=== PATIENT | female | born 1965 | race Caucasian/White ===

== ENCOUNTER 2022-01-02 09:44 | Inpatient (IN) | payer BC, OTHER ==
[2022-01-02 10:14] LABS: #Monocytes 0.6 10x3/uL (0.0-1.1); #Neutrophils 9.3 10x3/uL (1.5-8.4); %Basophils 0.2 % (0.0-2.0); %Eosinophils 0.3 % (0.0-6.0); %Lymphocytes 20.6 % (18.0-47.0); %Monocytes 4.4 % (0.0-10.0); %Neutrophils 74.2 % (40.0-75.0); Hemoglobin 16.1 g/dL (12.0-15.5); Mean Corpuscular HGB CONC 34.7 g/dL (32.0-36.0); Mean Corpuscular Hemoglobin 29.1 pg (27.0-33.0); Mean Corpuscular Volume 83.8 fl (81.6-98.3); Mean Platelet Volume 9.8 fl (7.4-10.4); Platelet Count 348 10x3/uL (150-450); RBC Distribution Width 12.2 % (11.5-14.5); Red Blood Cell (RBC) Count 5.54 10x6/uL (3.90-5.03); White Blood Cell (WBC) Count 12.6 10x3/uL (3.5-10.5)
[2022-01-02 10:33] LABS: ALT (SGPT) 22 U/L (8-55); AST (SGOT) 28 U/L (5-34); Acetaminophen Less than 10.0 mcg/mL (10.0-30.0); Albumin 4.4 g/dL (3.5-5.0); Alcohol Less than 10 mg/dL (Less than 10); Alkaline Phosphatase 114 U/L (40-110); Anion Gap 23 mmol/L (10-20); BUN (Urea Nitrogen) 13 mg/dL (9.8-20.1); Calc. Creatinine Clearance 0 mL/min (70-130); Calcium 9.6 mg/dL (7.8-10.44); Carbon Dioxide 18 mmol/L (22-29); Chloride 97 mmol/L (98-107); Estimated GFR 94; Globulin 4.1 g/dL (2.4-3.5); Glucose 369 mg/dL (70-105); Potassium 3.5 mmol/L (3.5-5.1); Protein, Total 8.5 g/dL (6.0-8.3); Salicylate Less than 8.0 mg/dL (15.0-30.0); Sodium 134 mmol/L (136-145)
[2022-01-02] MEDS ORDERED: Aspirin Chewable 81 MG TAB ONE (12:21)
[2022-01-02] MEDS ORDERED: Ondansetron PF 4 MG/2 ML Vial IVP PRN (13:27)
[2022-01-02] MEDS ORDERED: Acetaminophen 325 MG TAB PO PRN (13:27)
[2022-01-02] MEDS ORDERED: Ondansetron ODT 4 MG TAB PO PRN (13:27)
[2022-01-02] MEDS ORDERED: hydrALAZINE 20 MG/ML VIAL SLOW IVP PRN (13:27)
[2022-01-02 15:17] VITALS: BMI 28.2
[2022-01-02 15:24] LABS: Amphetamine Not Detected (NotDetected); Barbiturates Screen Not Detected (NotDetected); Benzodiazepine Screen Not Detected (NotDetected); Cocaine Metabolite Screen Not Detected (NotDetected); Methadone Not Detected (NotDetected); Methamphetamine Not Detected (NotDetected); Opiate Screen Not Detected (NotDetected); Oxycodone Screen Not Detected (NotDetected); Phencyclidine (PCP) Not Detected (NotDetected); THC/Cannabinoid Screen Not Detected (NotDetected); Tricyclic Screen Not Detected (NotDetected)
[2022-01-02] MEDS ORDERED: Dextrose 5% in Water 1,000 ML IV PRN (16:18)
[2022-01-02] MEDS ORDERED: Dextrose 50% Abboject 50 ML SYRINGE SLOW IVP PRN (16:18)
[2022-01-02] MEDS: Insulin Regular 300 UNITS/3 ML VIAL SC PRN (16:41)
[2022-01-02] MEDS: Atorvastatin Calcium 40 MG TAB PO SCH (21:04)
[2022-01-02] MEDS: Melatonin 3 MG TAB PO PRN (21:13)
[2022-01-03] MEDS ORDERED: traMADol HCl 50 MG TAB PO SCH (00:45)
[2022-01-03] MEDS: Insulin Regular 300 UNITS/3 ML VIAL SC PRN ×5 (00:58→20:41)
[2022-01-03 04:50] LABS: #Eosinphils 0.1 10x3/uL (0.0-0.5); #Monocytes 0.8 10x3/uL (0.0-1.1); #Neutrophils 6.3 10x3/uL (1.5-8.4); %Basophils 0.3 % (0.0-2.0); %Eosinophils 0.6 % (0.0-6.0); %Lymphocytes 33.5 % (18.0-47.0); %Monocytes 7.5 % (0.0-10.0); %Neutrophils 57.7 % (40.0-75.0); Hemoglobin 15.1 g/dL (12.0-15.5); Mean Corpuscular HGB CONC 35.6 g/dL (32.0-36.0); Mean Corpuscular Hemoglobin 29.5 pg (27.0-33.0); Mean Platelet Volume 9.5 fl (7.4-10.4); Platelet Count 273 10x3/uL (150-450); RBC Distribution Width 12.4 % (11.5-14.5); Red Blood Cell (RBC) Count 5.11 10x6/uL (3.90-5.03); White Blood Cell (WBC) Count 10.9 10x3/uL (3.5-10.5)
[2022-01-03 05:17] LABS: Anion Gap 15 mmol/L (10-20); BUN (Urea Nitrogen) 16 mg/dL (9.8-20.1); Calc. Creatinine Clearance 91 mL/min (70-130); Calcium 9.2 mg/dL (7.8-10.44); Carbon Dioxide 26 mmol/L (22-29); Cardiac Risk 10.7 (Less than 4.5); Chloride 99 mmol/L (98-107); Cholesterol 320 mg/dl (< 200 Desired); Estimated GFR 89; Glucose 330 mg/dL (70-105); HDL Cholesterol 30 mg/dL (>60 Neg Risk); LDL Cholesterol, Calculated 212 mg/dL; Potassium 2.8 mmol/L (3.5-5.1); Sodium 137 mmol/L (136-145); Triglycerides 388 mg/dL (Less than 150)
[2022-01-03] MEDS: Enoxaparin Sodium 40 MG/0.4 ML SYRINGE SC SCH (09:07)
[2022-01-03] MEDS: Aspirin 81 mg Enteric Coated Tablet PO SCH (09:07)
[2022-01-03] MEDS ORDERED: Potassium Chloride 20 MEQ TAB PO SCH (12:00)
[2022-01-03] MEDS ORDERED: SUMAtriptan Succinate 50 MG TAB PO SCH (12:30)
[2022-01-03 13:29] LABS: Magnesium 1.7 mg/dL (1.6-2.6)
[2022-01-03 13:30] LABS: Hemoglobin A1c 12.7 % (4.0-6.0)
[2022-01-03] MEDS ORDERED: Ibuprofen 600 MG TAB PO PRN (15:55)
[2022-01-03] MEDS ORDERED: SUMAtriptan Succinate 50 MG TAB PO PRN (15:56)
[2022-01-03] MEDS: Atorvastatin Calcium 40 MG TAB PO SCH (20:39)
[2022-01-03] MEDS: rOPINIRole HCl 0.25 MG TAB PO SCH (20:39)
[2022-01-03] MEDS: Metoprolol Tartrate 50 MG TAB PO SCH (20:40)
[2022-01-03] MEDS ORDERED: Lantus 1000 UNITS/10 ML VIAL SC SCH (21:00)
[2022-01-03] MEDS: Melatonin 3 MG TAB PO PRN (21:02)
[2022-01-04 04:47] LABS: #Eosinphils 0.1 10x3/uL (0.0-0.5); #Monocytes 0.7 10x3/uL (0.0-1.1); #Neutrophils 4.5 10x3/uL (1.5-8.4); %Basophils 0.4 % (0.0-2.0); %Eosinophils 1.1 % (0.0-6.0); %Lymphocytes 45.4 % (18.0-47.0); %Neutrophils 45.8 % (40.0-75.0); Hemoglobin 15.9 g/dL (12.0-15.5); Mean Corpuscular HGB CONC 33.8 g/dL (32.0-36.0); Mean Corpuscular Hemoglobin 28.7 pg (27.0-33.0); Mean Platelet Volume 9.9 fl (7.4-10.4); Platelet Count 298 10x3/uL (150-450); RBC Distribution Width 12.6 % (11.5-14.5); Red Blood Cell (RBC) Count 5.54 10x6/uL (3.90-5.03); White Blood Cell (WBC) Count 9.7 10x3/uL (3.5-10.5)
[2022-01-04 04:53] LABS: Anion Gap 15 mmol/L (10-20); BUN (Urea Nitrogen) 17 mg/dL (9.8-20.1); Calc. Creatinine Clearance 103 mL/min (70-130); Calcium 9.3 mg/dL (7.8-10.44); Carbon Dioxide 26 mmol/L (22-29); Chloride 98 mmol/L (98-107); Estimated GFR 101; Glucose 324 mg/dL (70-105); Potassium 3.3 mmol/L (3.5-5.1); Sodium 136 mmol/L (136-145)
[2022-01-04] MEDS: Insulin Regular 300 UNITS/3 ML VIAL SC PRN ×3 (06:09→17:25)
[2022-01-04] MEDS: metFORMIN 500 MG TAB PO SCH ×2 (08:22→17:24)
[2022-01-04] MEDS: Aspirin 81 mg Enteric Coated Tablet PO SCH (08:28)
[2022-01-04] MEDS: Hydrochlorothiazide 25 MG TAB PO SCH (08:28)
[2022-01-04] MEDS: Sertraline 100 MG TAB PO SCH (08:29)
[2022-01-04] MEDS: Metoprolol Tartrate 50 MG TAB PO SCH ×2 (08:29→20:32)
[2022-01-04] MEDS: Enoxaparin Sodium 40 MG/0.4 ML SYRINGE SC SCH (08:30)
[2022-01-04] MEDS ORDERED: Potassium Chloride 20 MEQ TAB PO SCH (09:00)
[2022-01-04] MEDS: NPH, Human Insulin Isophane 300 UNIT/3 ML VIAL SC SCH ×2 (12:20→17:31)
[2022-01-04] MEDS: Loperamide HCl 2 MG CAP PO PRN (15:02)
[2022-01-04] MEDS: Atorvastatin Calcium 40 MG TAB PO SCH (20:32)
[2022-01-04] MEDS: rOPINIRole HCl 0.25 MG TAB PO SCH (20:32)
[2022-01-04] MEDS ORDERED: Lantus 1000 UNITS/10 ML VIAL SC SCH (21:00)
[2022-01-05 04:49] LABS: Anion Gap 16 mmol/L (10-20); BUN (Urea Nitrogen) 16 mg/dL (9.8-20.1); Calc. Creatinine Clearance 106 mL/min (70-130); Calcium 8.8 mg/dL (7.8-10.44); Carbon Dioxide 23 mmol/L (22-29); Chloride 102 mmol/L (98-107); Estimated GFR 102; Glucose 190 mg/dL (70-105); Potassium 3.1 mmol/L (3.5-5.1); Sodium 138 mmol/L (136-145)
[2022-01-05 04:57] LABS: #Eosinphils 0.1 10x3/uL (0.0-0.5); #Monocytes 0.7 10x3/uL (0.0-1.1); #Neutrophils 4.9 10x3/uL (1.5-8.4); %Basophils 0.3 % (0.0-2.0); %Eosinophils 0.9 % (0.0-6.0); %Lymphocytes 42.8 % (18.0-47.0); %Monocytes 7.3 % (0.0-10.0); %Neutrophils 48.5 % (40.0-75.0); Hemoglobin 14.8 g/dL (12.0-15.5); Mean Corpuscular HGB CONC 33.9 g/dL (32.0-36.0); Mean Corpuscular Hemoglobin 28.8 pg (27.0-33.0); Mean Corpuscular Volume 85.2 fl (81.6-98.3); Mean Platelet Volume 10.3 fl (7.4-10.4); Platelet Count 258 10x3/uL (150-450); RBC Distribution Width 12.6 % (11.5-14.5); Red Blood Cell (RBC) Count 5.13 10x6/uL (3.90-5.03); White Blood Cell (WBC) Count 10.1 10x3/uL (3.5-10.5)
[2022-01-05 05:32] VITALS: TEMP 97.8
[2022-01-05] MEDS ORDERED: Potassium Chloride 20 MEQ TAB PO SCH (08:00)
[2022-01-05 08:44] VITALS: BP 118/72
[2022-01-05] MEDS: Sertraline 100 MG TAB PO SCH (08:45)
[2022-01-05] MEDS: Hydrochlorothiazide 25 MG TAB PO SCH (08:45)
[2022-01-05] MEDS: NPH, Human Insulin Isophane 300 UNIT/3 ML VIAL SC SCH ×2 (08:46→11:48)
[2022-01-05] MEDS: Enoxaparin Sodium 40 MG/0.4 ML SYRINGE SC SCH (08:46)
[2022-01-05] MEDS: metFORMIN 500 MG TAB PO SCH ×2 (08:46→13:08)
[2022-01-05] MEDS: Metoprolol Tartrate 50 MG TAB PO SCH ×2 (08:46→13:07)
[2022-01-05] MEDS: Aspirin 81 mg Enteric Coated Tablet PO SCH (08:46)
[2022-01-05] MEDS: Loperamide HCl 2 MG CAP PO PRN (08:48)
[2022-01-05] MEDS ORDERED: Atorvastatin Calcium 40 MG TAB PO SCH (14:00)
[2022-01-06] MEDS ORDERED: Atorvastatin Calcium 40 MG TAB PO SCH (21:00)
== END 2022-01-05 13:45 | disposition home health service (06) | DRG 66 ==
LOC: CSHERS 09:44 → CSHTELE 13:57
PROVIDERS: ADMIT Internal Medicine; ATTEND Internal Medicine
DX: I63.9 Cerebral infarction, unspecified (principal); F41.9 Anxiety disorder, unspecified; I10 Essential (primary) hypertension; G43.909 Migraine, unspecified, not intractable, without status migrainosus; G25.81 Restless legs syndrome; E11.40 Type 2 diabetes mellitus with diabetic neuropathy, unspecified; Z20.822 Contact with and (suspected) exposure to COVID-19; Z79.899 Other long term (current) drug therapy
CPT/HCPCS: 36415; 36416; 70450; 70551; 80048; 80053; 80061; 80306; 80307; 83036; 83605; 83735; 84443; 84484; 85025; 93005; 93306; 93880; J1650; J1815; U0003; U0005

== ENCOUNTER 2022-05-07 19:44 | Emergency (ER) | payer OTHER | END 2022-05-07 22:55 | disposition home or self-care (01) | LOC: CSHERS 19:44 | DX: R20.2 Paresthesia of skin (principal); I10 Essential (primary) hypertension; Z79.82 Long term (current) use of aspirin | CPT/HCPCS: 70450 ==